=== PATIENT | male | born 1980 | race American Indian/Alaskan Native ===

== ENCOUNTER 2017-01-25 21:16 | Emergency (ER) | payer SELFPAY ==
[2017-01-25 21:50] VITALS: O2SAT 95
--- NOTE | 2017-01-25 23:57 | C.PDOC ---
History Of Present Illness 36 year old patient, with a past medical history of hypertension, back problems , and asthma, presents to the ED complaining of lower back pain. Patient states he was leaning on a wall at work, his boss noticed, and sent him to the ED to be evaluated. The pain has also been radiating down the right lower extremity. Patient denies any work related injury, numbness, weakness, or urinary symptoms. Patient is able to ambulate. Time Seen by Provider: 01/25/17 23:03 Chief Complaint (Nursing): Back Pain History Per: Patient History/Exam Limitations: no limitations Onset/Duration Of Symptoms: Other (chronic) Current Symptoms Are (Timing): Still Present Quality Of Discomfort: "Pain" Severity: Mild Pain Scale Rating Of: 3 Previous Symptoms: Back Pain Associated Symptoms: None Exacerbating Factor(s): Nothing Recent travel outside of the [place]: No Past Medical History Reviewed: Historical Data, Nursing Documentation, Vital Signs Vital Signs: Last Vital Signs Temp 98.1 F 01/26/17 00:00 Pulse 94 H 01/26/17 00:00 Resp 18 01/26/17 00:00 BP 164/91 H 01/26/17 00:00 Pulse Ox 95 01/26/17 00:01 - Medical History PMH: Asthma, Back Problems, HTN Family History: States: Unknown Family Hx - Social History Hx Tobacco Use: No Hx Alcohol Use: No Hx Substance Use: No - Immunization History Hx Tetanus Toxoid Vaccination: No Hx Influenza Vaccination: No Hx Pneumococcal Vaccination: No Review Of Systems Except As Marked, All Systems Reviewed And Found Negative. Genitourinary: Negative for: Dysuria, Frequency, Incontinence Musculoskeletal: Positive for: Back Pain (lower), Leg Pain (radiating to the right leg) Neurological: Negative for: Weakness, Numbness Physical Exam - Physical Exam Appears: Non-toxic, No Acute Distress Skin: Warm, Dry Back: Normal Inspection, No CVA Tenderness, No Vertebral Tenderness, No Decreased ROM, No Paraspinal Tenderness, No Straight Leg Raising (negative) Extremity: Normal ROM, No Pedal Edema, No Calf Tenderness, Capillary Refill (<2 seconds), No Deformity, No Swelling Neurological/Psych: Oriented x3, Normal Motor, Normal Sensation Gait: Steady ED Course And Treatment O2 Sat by Pulse Oximetry: 95 (RA) Pulse Ox Interpretation: Normal Progress Note: Plan: -Motrin Disposition - Disposition Disposition: HOME/ ROUTINE Disposition Time: 23:55 Condition: STABLE Additional Instructions: Please follow up with PMD or in clinic Take meds as directed Return to ER if worse Prescriptions: Naproxen [Naprosyn] 1 tab PO BID PRN #25 tab PRN Reason: Pain Instructions: Back Pain (ED) Forms: Work Excuse - Clinical Impression Clinical Impression: Low back pain - 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 - Scribe Statement The provider has reviewed the documentation as recorded by the Scribe Tiffanie Childress All medical record entries made by the Scribe were at my direction and personally dictated by me. I have reviewed the chart and agree that the record accurately reflects my personal performance of the history, physical exam, medical decision making, and the department course for this patient. I have also personally directed, reviewed, and agree with the discharge instructions and disposition.
--- NOTE | 2017-01-25 23:58 | C.PDOC ---
Time Seen by Provider: 01/25/17 23:03 Chief Complaint (Nursing): Back Pain Past Medical History Vital Signs: Last Vital Signs Temp 98.2 F 01/25/17 21:47 Pulse 100 H 01/25/17 21:47 Resp 20 01/25/17 21:47 BP 156/120 H 01/25/17 21:47 Pulse Ox 95 01/25/17 21:47 - Medical History PMH: Asthma, Back Problems, HTN Family History: States: Unknown Family Hx - Social History Hx Tobacco Use: No Hx Alcohol Use: No Hx Substance Use: No - Immunization History Hx Tetanus Toxoid Vaccination: No Hx Influenza Vaccination: No Hx Pneumococcal Vaccination: No ED Course And Treatment O2 Sat by Pulse Oximetry: 95 Disposition Counseled Patient/Family Regarding: Diagnosis, Need For Followup, Rx Given - Disposition Disposition: HOME/ ROUTINE Disposition Time: 23:56 Condition: STABLE Additional Instructions: Please follow up with PMD or in clinic Take meds as directed Return to ER if worse Prescriptions: Naproxen [Naprosyn] 1 tab PO BID PRN #25 tab PRN Reason: Pain Instructions: Back Pain (ED) - Clinical Impression Clinical Impression: Low back pain
[2017-01-26] VITALS: BP 164/91; PULSE 94; RESP 18; TEMP 98.1
== END 2017-01-26 00:07 | disposition home or self-care (01) ==
LOC: C.ER 21:16
DX: M54.5 Low back pain (principal)

== ENCOUNTER 2017-02-19 12:47 | Emergency (ER) | payer OTHER ==
[2017-02-19 13:01] VITALS: RESP 18; TEMP 99.1; O2SAT 94
[2017-02-19 13:18] VITALS: BP 162/120; PULSE 97
--- NOTE | 2017-02-19 13:30 | C.PDOC ---
History Of Present Illness 36 y/o male presents to ED requesting medication refill. Pt states he regularly takes labetalol 100mg BID at 7 AM and 11 PM. at bedside reports history of (+) obstructive sleep apnea. Notes she video tapes pt while sleeping, with profound snoring. Denies fever, chills, headache, visual changes, chest pain, palpitations, SOB, nausea, vomiting, or other associated symptoms. Time Seen by Provider: 02/19/17 13:12 Chief Complaint (Nursing): Med Refill History Per: Patient History/Exam Limitations: no limitations Onset/Duration Of Symptoms: Days Recent travel outside of the [place]: No Past Medical History Reviewed: Historical Data, Nursing Documentation, Vital Signs Vital Signs: Last Vital Signs Temp 99.1 F 02/19/17 12:54 Pulse 97 H 02/19/17 13:10 Resp 18 02/19/17 12:54 BP 162/120 H 02/19/17 13:10 Pulse Ox 94 L 02/20/17 00:05 - Medical History PMH: Asthma, Back Problems, HTN Family History: States: Unknown Family Hx - Social History Hx Tobacco Use: No Hx Alcohol Use: No Hx Substance Use: No - Immunization History Hx Tetanus Toxoid Vaccination: No Hx Influenza Vaccination: No Hx Pneumococcal Vaccination: No Review Of Systems Except As Marked, All Systems Reviewed And Found Negative. Constitutional: Negative for: Fever, Chills, Malaise Eyes: Negative for: Vision Change Cardiovascular: Negative for: Chest Pain, Palpitations Respiratory: Negative for: Cough, Wheezing Gastrointestinal: Negative for: Nausea, Vomiting, Abdominal Pain Skin: Negative for: Rash Neurological: Negative for: Weakness, Numbness, Headache, Dizziness Physical Exam - Physical Exam Appears: Non-toxic, No Acute Distress, Other (morbidly obese) Skin: Warm, Dry Head: Atraumatic, Normacephalic Throat: Other (small oropharynx ) Neck: Supple Chest: Symmetrical Cardiovascular: Rhythm Regular, No Murmur Respiratory: Normal Breath Sounds, No Rales, No Rhonchi, No Wheezing Gastrointestinal/Abdominal: Soft, No Tenderness, No Guarding, No Rebound Back: Normal Inspection Extremity: Normal ROM, Capillary Refill Neurological/Psych: Oriented x3, Normal Speech, Normal Cognition ED Course And Treatment O2 Sat by Pulse Oximetry: 94 (RA) Pulse Ox Interpretation: Normal Medical Decision Making Medical Decision Making: poorly controlled HTN, last dose of Labetolol 100 mg yesterday Should be on BOBBI and BB considering likely LVH and CLARENCE Refer for sleep Study Disposition Doctor Will See Patient In The: Office Counseled Patient/Family Regarding: Studies Performed, Diagnosis - Disposition Referrals: [facility] [Outside] [facility] [Outside] Tyler Smith MD [Staff Provider] - Disposition: HOME/ ROUTINE Disposition Time: 13:35 Condition: GOOD Additional Instructions: Hypertension: Take the Labetolol 200 mg twice a day: 8AM and 4PM. do NOT take before bedtime. Consider pt with HTN, CLARENCE, LVH should have ACEI and BB meds. CLARENCE: Follow-up with Dr. Smith ([employer]) to have a Sleep Study performed and to be fitted for a sleep mask General: Loose body fat Moderate cardio, less heavy lifting. Prescriptions: Labetalol [Trandate] 200 mg PO BID #60 tab Instructions: Sleep Apnea Syndrome (ED), Hypertension (ED) - Clinical Impression Clinical Impression: Hypertension, CLARENCE (obstructive sleep apnea) - Scribe Statement The provider has reviewed the documentation as recorded by the Bridgettibmich Hernandez Provider Scribe Attestation: All medical record entries made by the Scribe were at my direction and personally dictated by me. I have reviewed the chart and agree that the record accurately reflects my personal performance of the history, physical exam, medical decision making, and the department course for this patient. I have also personally directed, reviewed, and agree with the discharge instructions and disposition.
== END 2017-02-19 13:46 | disposition home or self-care (01) ==
LOC: C.ER 12:47
DX: I10 Essential (primary) hypertension (principal); G47.33 Obstructive sleep apnea (adult) (pediatric)

== ENCOUNTER 2017-09-19 06:34 | Emergency (ER) | payer OTHER ==
[2017-09-19] MEDS ORDERED: Dexamethasone 4 mg/1 ml IM STA (08:14)
--- NOTE | 2017-09-19 08:18 | C.PDOC ---
History Of Present Illness 37-year-old male, presents to the emergency department with complaints of back pain. Patient states he works thirteen hour shifts, that he spends lifting things and walking a lot. States he has been experiencing worsening of chronic lower back pain over the past two weeks. Denies nausea/vomiting, numbness/ weakness, bladder or bowel incontinence, tingling sensation, or any other associated symptoms. No other complaints at this time. Time Seen by Provider: 09/19/17 07:31 Chief Complaint (Nursing): Back Pain History Per: Patient History/Exam Limitations: no limitations Onset/Duration Of Symptoms: Days Current Symptoms Are (Timing): Still Present Severity: Moderate Past Medical History Reviewed: Historical Data, Nursing Documentation, Vital Signs Vital Signs: Last Vital Signs Temp 98 F 09/19/17 06:53 Pulse 93 H 09/19/17 06:53 Resp 20 09/19/17 06:53 BP 140/90 09/19/17 06:53 Pulse Ox 97 09/19/17 08:24 - Medical History PMH: Asthma, Back Problems, HTN Family History: States: No Known Family Hx - Social History Hx Tobacco Use: No Hx Alcohol Use: No Hx Substance Use: No - Immunization History Hx Tetanus Toxoid Vaccination: No Hx Influenza Vaccination: No Hx Pneumococcal Vaccination: No Review Of Systems Except As Marked, All Systems Reviewed And Found Negative. Constitutional: Negative for: Fever Cardiovascular: Negative for: Chest Pain Respiratory: Negative for: Shortness of Breath Gastrointestinal: Negative for: Vomiting Genitourinary: Negative for: Incontinence Musculoskeletal: Positive for: Back Pain Neurological: Negative for: Weakness, Numbness Physical Exam - Physical Exam Appears: Non-toxic, No Acute Distress Skin: Warm, Dry, No Rash Head: Atraumatic, Normacephalic Eye(s): bilateral: Normal Inspection, PERRL, EOMI Nose: Normal Oral Mucosa: Moist Lips: Normal Appearing Neck: Normal ROM, No Midline Cervical Tenderness, No Paracervical Tenderness, Supple Chest: Symmetrical Cardiovascular: Rhythm Regular, No Murmur Respiratory: Normal Breath Sounds, No Accessory Muscle Use Gastrointestinal/Abdominal: Bowel Sounds (active), Soft, No Tenderness Back: No CVA Tenderness, Paraspinal Tenderness (Lumbar), No Straight Leg Raising Extremity: Normal ROM, No Tenderness, No Swelling Pulses: Left Dorsalis Pedis: Normal, Right Dorsalis Pedis: Normal Neurological/Psych: Oriented x3, Normal Speech, Normal Motor, Normal Sensation Gait: Steady ED Course And Treatment O2 Sat by Pulse Oximetry: 97 (on RA) Pulse Ox Interpretation: Normal Medical Decision Making Medical Decision Making: Plan: * Decadron, Lidoderm, Toradol * Reassess and Disposition On re-exam, the patient reports improvement of symptoms. Lungs are CTA, heart is RRR, Abdomen is soft, non-tender and tolerating PO well. Ambulatory in the ED. Follow up with the medical doctor within 1-2 days. Return if worsened. Disposition - Disposition Referrals: [facility] [Outside] Disposition: HOME/ ROUTINE Disposition Time: 09:07 Condition: GOOD Additional Instructions: Follow up with the medical doctor within 1-2 days. Return if worsened. Prescriptions: Cyclobenzaprine [Cyclobenzaprine HCl] 10 mg PO BID #14 tab Naproxen [Naprosyn] 500 mg PO BID #20 tab Instructions: Acute Low Back Pain (DC) Forms: [facility] (Swazi), Work Excuse - Clinical Impression Clinical Impression: Low back pain - Scribe Statement The provider has reviewed the documentation as recorded by the Scribe (Luis Redman) All medical record entries made by the Scribe were at my direction and personally dictated by me. I have reviewed the chart and agree that the record accurately reflects my personal performance of the history, physical exam, medical decision making, and the department course for this patient. I have also personally directed, reviewed, and agree with the discharge instructions and disposition.
[2017-09-19] MEDS ORDERED: Lidocaine 5% Patch TD ONE (08:24)
[2017-09-19 09:19] VITALS: BP 132/78; PULSE 86; RESP 18; TEMP 98.4
[2017-09-19] MEDS ORDERED: Lidocaine 5% Patch TD SCH (10:00)
[2017-09-21 12:40] VITALS: O2SAT 97
== END 2017-09-19 09:20 | disposition home or self-care (01) ==
LOC: C.ER 06:34
DX: M54.5 Low back pain (principal)
CPT/HCPCS: 96372; 99283; J1100; J1885

== ENCOUNTER 2018-03-09 05:28 | Emergency (ER) | payer SELFPAY ==
[2018-03-09 06:19] VITALS: RESP 20; TEMP 98.2
--- NOTE | 2018-03-09 06:23 | C.PDOC ---
History Of Present Illness 37 year old male presents to the ED c/o left elbow pain that stared yesterday. Patient states he does heavy lifting at work, denies c/o pain to his left shoulder or chest. Patient has not taken any pain medications at home for his symptoms. Patient denies trauma, injury, fall, weakness, numbness. Time Seen by Provider: 03/09/18 06:10 Chief Complaint (Nursing): Upper Extremity Problem/Injury History Per: Patient History/Exam Limitations: no limitations Onset/Duration Of Symptoms: Days Current Symptoms Are (Timing): Still Present Quality: "Pain" Exacerbating Factor(s): Movement Recent travel outside of the [place]: No Additional History Per: Patient Past Medical History Reviewed: Historical Data, Nursing Documentation, Vital Signs Vital Signs: Last Vital Signs Temp 98.2 F 03/09/18 06:14 Pulse 100 H 03/09/18 06:14 Resp 20 03/09/18 06:14 BP 186/114 H 03/09/18 06:14 Pulse Ox 95 03/09/18 06:48 - Medical History PMH: Asthma, Back Problems, HTN Surgical History: No Surg Hx Family History: States: Unknown Family Hx - Social History Hx Tobacco Use: No Hx Alcohol Use: No Hx Substance Use: No - Immunization History Hx Tetanus Toxoid Vaccination: No Hx Influenza Vaccination: No Hx Pneumococcal Vaccination: No Review Of Systems Constitutional: Negative for: Fever, Chills Cardiovascular: Negative for: Chest Pain Respiratory: Negative for: Shortness of Breath Gastrointestinal: Negative for: Abdominal Pain Musculoskeletal: Positive for: Arm Pain Skin: Negative for: Rash Physical Exam - Physical Exam Appears: Non-toxic, No Acute Distress Skin: Normal Color, Warm, Dry Head: Atraumatic, Normacephalic Eye(s): bilateral: Normal Inspection Nose: No Discharge Oral Mucosa: Moist Neck: Normal ROM, Supple Chest: Symmetrical Cardiovascular: Rhythm Regular, No Murmur Respiratory: Normal Breath Sounds, No Rales, No Rhonchi, No Wheezing Gastrointestinal/Abdominal: Soft, No Tenderness, No Guarding, No Rebound Extremity: No Normal ROM (limited left elbow due to pain), Tenderness (left elbow), Capillary Refill (< 2 seconds), No Swelling, Other (no effusion, no warmth,) Pulses: Left Dorsalis Pedis: Normal, Right Dorsalis Pedis: Normal Neurological/Psych: Oriented x3, Normal Speech, Normal Motor, Normal Sensation Gait: Steady ED Course And Treatment ECG: Interpreted By Me, Viewed By Me ECG Rhythm: Sinus Rhythm Interpretation Of ECG: LVH no ST/T wave changes Rate From EC (BPM) O2 Sat by Pulse Oximetry: 95 (ON RA) Pulse Ox Interpretation: Normal - Other Rad left elbow X-Ray: Interpreted by Me, Viewed By Me Progress Note: Plan: - Toradol 30 mg IM. - Left elbow X-Ray. On reassessment , patient is resting comfortably, and is in no acute distress. Patient was instructed to follow up with physician/clinic in 1-2 days for further evaluation. 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 - Scribe Statement The provider has reviewed the documentation as recorded by the Scribe Jarrett Wells All medical record entries made by the Scribe were at my direction and personally dictated by me. I have reviewed the chart and agree that the record accurately reflects my personal performance of the history, physical exam, medical decision making, and the department course for this patient. I have also personally directed, reviewed, and agree with the discharge instructions and disposition. Physician Patient Turnover Patient Signed Over To: Barbara Castaneda Handoff Comments: Pending Lt elbow XR
--- NOTE | 2018-03-09 06:28 | C.PDOC ---
Time Seen by Provider: 03/09/18 06:10 Chief Complaint (Nursing): Upper Extremity Problem/Injury Past Medical History - Medical History PMH: Asthma, Back Problems, HTN - Social History Hx Tobacco Use: No Hx Alcohol Use: No Hx Substance Use: No - Immunization History Hx Tetanus Toxoid Vaccination: No Hx Influenza Vaccination: No Hx Pneumococcal Vaccination: No Disposition - Disposition
[2018-03-09 07:05] VITALS: BP 154/100; PULSE 90; O2SAT 97
--- NOTE | 2018-03-09 08:53 | RAD ---
PROCEDURE: Radiographs of the left elbow. HISTORY: pain COMPARISON: No prior. FINDINGS: BONES: No acute fracture. JOINTS: Unremarkable. SOFT TISSUES: Normal. JOINT EFFUSION: None. OTHER FINDINGS: Small triceps tendon enthesophyte IMPRESSION: No demonstrated fracture or dislocation.
--- NOTE | 2018-03-11 13:25 | CARD ---
APPROVED REPORT EKG Measurement Heart [id number] <Conclusion> Normal sinus rhythm LVH with repolarization abnormality Prolonged QT Abnormal ECG
== END 2018-03-09 07:38 | disposition home or self-care (01) ==
LOC: C.ER 05:28
DX: M25.522 Pain in left elbow (principal)
CPT/HCPCS: 73080; 96372; 99284; J1885

== ENCOUNTER 2018-10-01 01:05 | Emergency (ER) | payer OTHER ==
[2018-10-01 01:20] VITALS: O2SAT 95
--- NOTE | 2018-10-01 02:31 | C.PDOC ---
History Of Present Illness 38 year old male presents to the ER with a complaint of right lower back pain after lifting a heavy box at work [employer]END[employer]. Patient states he felt a pulling sensation to his lower back, notes the pain worsens with movement. Denies dysuria, hematuria, incontinence, weakness, or numbness. Time Seen by Provider: 10/01/18 01:20 Chief Complaint (Nursing): Back Pain History Per: Patient History/Exam Limitations: no limitations Onset/Duration Of Symptoms: Hrs Current Symptoms Are (Timing): Still Present Previous Symptoms: None Associated Symptoms: None Recent travel outside of the [place]: No Past Medical History Reviewed: Historical Data, Nursing Documentation, Vital Signs Vital Signs: Last Vital Signs Temp 98.1 F 10/01/18 01:15 Pulse 93 H 10/01/18 01:15 Resp 14 10/01/18 01:15 BP 183/134 H 10/01/18 01:15 Pulse Ox 95 10/01/18 01:15 - Medical History PMH: Asthma, Back Problems, HTN Family History: States: Unknown Family Hx - Social History Hx Tobacco Use: No Hx Alcohol Use: No Hx Substance Use: No - Immunization History Hx Tetanus Toxoid Vaccination: No Hx Influenza Vaccination: No Hx Pneumococcal Vaccination: No Review Of Systems Genitourinary: Negative for: Dysuria, Incontinence, Hematuria Musculoskeletal: Positive for: Back Pain (Right lower) Neurological: Negative for: Weakness, Numbness Physical Exam - Physical Exam Appears: Non-toxic Skin: Normal Color, Warm, Dry Head: Atraumatic, Normacephalic Eye(s): bilateral: Normal Inspection Gastrointestinal/Abdominal: Normal Exam, Other (obese) Back: No CVA Tenderness, No Vertebral Tenderness, Paraspinal Tenderness (Right lumbar), Straight Leg Raising (Negative) Extremity: Normal ROM (x4) Neurological/Psych: Oriented x3, Normal Speech Gait: Steady ED Course And Treatment O2 Sat by Pulse Oximetry: 95 (Room air) Pulse Ox Interpretation: Normal Progress Note: Valium and toradol administered. Patient is resting comfortably in the ER in no acute distress, ambulatory with steady gait, vitals are stable, will discharge home with Rx instructions to follow up with PMD. 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 - Scribe Statement The provider has reviewed the documentation as recorded by the Scribmich Bennett All medical record entries made by the Shauna were at my direction and personally dictated by me. I have reviewed the chart and agree that the record accurately reflects my personal performance of the history, physical exam, medical decision making, and the department course for this patient. I have also personally directed, reviewed, and agree with the discharge instructions and disposition.
[2018-10-01 02:33] VITALS: BP 180/120; PULSE 86; RESP 20; TEMP 97.8
== END 2018-10-01 02:59 | disposition home or self-care (01) ==
LOC: C.ER 01:05
DX: S39.012A Strain of muscle, fascia and tendon of lower back, initial encounter (principal); X50.0XXA Overexertion from strenuous movement or load, initial encounter; Y99.0 Civilian activity done for income or pay; I10 Essential (primary) hypertension
CPT/HCPCS: 96372; 99283; J1885

== ENCOUNTER 2018-10-15 13:02 | Emergency (ER) | payer SELFPAY ==
[2018-10-15 13:16] VITALS: RESP 18; TEMP 98.2
[2018-10-15] MEDS ORDERED: Lidocaine 5% Patch TD STA (14:13)
[2018-10-15] MEDS ORDERED: Lidocaine 5% Patch TD ONE (14:21)
--- NOTE | 2018-10-15 15:03 | C.PDOC ---
Time Seen by Provider: 10/15/18 13:57 Chief Complaint (Nursing): Back Pain Past Medical History Vital Signs: Last Vital Signs Temp 98.2 F 10/15/18 13:15 Pulse 88 10/15/18 13:15 Resp 18 10/15/18 13:15 BP 161/97 H 10/15/18 13:15 Pulse Ox 95 10/15/18 13:15 - Medical History PMH: Asthma, Back Problems, HTN Family History: States: Unknown Family Hx - Social History Hx Tobacco Use: No Hx Alcohol Use: No Hx Substance Use: No - Immunization History Hx Tetanus Toxoid Vaccination: No Hx Influenza Vaccination: No Hx Pneumococcal Vaccination: No ED Course And Treatment O2 Sat by Pulse Oximetry: 95 Disposition Counseled Patient/Family Regarding: Diagnosis, Need For Followup, Rx Given - Disposition Referrals: [facility] [Outside] Disposition: HOME/ ROUTINE Disposition Time: 15:01 Condition: STABLE Additional Instructions: follow up with medical clinic within 2 days call to make an appointment take medications as prescribed return to ER if symptoms worsens or progress Prescriptions: Acetaminophen/Codeine [Tylenol/Codeine 300 MG/30 MG] 1 tab PO Q6H PRN #8 tab PRN Reason: Pain, Severe (8-10) Cyclobenzaprine [Cyclobenzaprine HCl] 10 mg PO TID PRN #12 tab PRN Reason: Muscle Spasm Lidocaine 5% [Lidoderm] 1 ea TD DAILY PRN #10 patch PRN Reason: Pain, Moderate (4-7) predniSONE [predniSONE Tab] 50 mg PO DAILY #3 tab Instructions: Low Back Pain in Adults Forms: [facility] (Icelandic), General Discharge Instructions, Work Excuse - Clinical Impression Clinical Impression: Low back pain
[2018-10-15 15:24] VITALS: BP 167/94; PULSE 80; O2SAT 97
== END 2018-10-15 15:23 | disposition home or self-care (01) ==
LOC: C.ER 13:02
DX: M54.5 Low back pain (principal); I10 Essential (primary) hypertension
CPT/HCPCS: 96372; 99283; J1885

== ENCOUNTER 2018-11-19 20:32 | Emergency (ER) | payer SELFPAY ==
[2018-11-19 20:45] VITALS: RESP 20
[2018-11-19] MEDS ORDERED: Oxycodone/Acetaminophen 5/325 mg Tab PO STA (21:57)
[2018-11-19] MEDS ORDERED: Oxycodone/Acetaminophen 5/325 mg Tab ONE (22:11)
--- NOTE | 2018-11-19 22:28 | C.PDOC ---
History Of Present Illness 38 year old male with right 3rd tooth extraction 3 weeks ago presents still with on going pain. Denies new injury, fever, or chills. Time Seen by Provider: 11/19/18 21:45 Chief Complaint (Nursing): Dental Pain History Per: Patient History/Exam Limitations: no limitations Onset/Duration Of Symptoms: Days Current Symptoms Are (Timing): Still Present Recent travel outside of the [place]: No Past Medical History Reviewed: Historical Data, Nursing Documentation, Vital Signs Vital Signs: Last Vital Signs Temp 97.6 F 11/19/18 20:37 Pulse 98 H 11/19/18 20:37 Resp 20 11/19/18 20:37 BP 170/127 H 11/19/18 20:37 Pulse Ox 95 11/19/18 20:37 - Medical History PMH: Asthma, Back Problems, HTN, Sleep Apnea Family History: States: Unknown Family Hx - Social History Hx Tobacco Use: No Hx Alcohol Use: No Hx Substance Use: No - Immunization History Hx Tetanus Toxoid Vaccination: No Hx Influenza Vaccination: No Hx Pneumococcal Vaccination: No Review Of Systems Except As Marked, All Systems Reviewed And Found Negative. ENT: Positive for: Other (Tooth pain) Physical Exam - Physical Exam Appears: Non-toxic Skin: Normal Color, Warm, Dry Head: Atraumatic, Normacephalic Eye(s): bilateral: Normal Inspection Oral Mucosa: Moist Gingiva: Other (Mild gingival irritation, no dry socket or discharge to right 3rd tooth space) Neck: Normal, Supple Chest: Symmetrical, No Tenderness Cardiovascular: Rhythm Regular Respiratory: Normal Breath Sounds, No Rales, No Rhonchi, No Wheezing Gastrointestinal/Abdominal: Soft, No Tenderness Neurological/Psych: Oriented x3, Normal Speech ED Course And Treatment O2 Sat by Pulse Oximetry: 95 (Room air) Pulse Ox Interpretation: Normal Medical Decision Making Medical Decision Making: Impression: Tooth extraction Disposition - Disposition Referrals: [facility] [Outside] Disposition: HOME/ ROUTINE Disposition Time: 22:28 Condition: STABLE Additional Instructions: follow up with your dentist within 2 days call to make an appointment take medication as prescribed return to ER if symptoms worsens or progress Prescriptions: Mag&Al/Simet/Diphen/Lido [First Magic Mouthwash] 5 ml MM TID PRN #1 kit PRN Reason: Pain, Moderate (4-7) oxyCODONE/Acetaminophen [Percocet 5/325 mg Tab] 1 ea PO TID PRN #4 tab PRN Reason: Pain, Moderate (4-7) Instructions: Dental Pain (DC) Forms: General Discharge Instructions, [facility] (Palestinian) - Clinical Impression Clinical Impression: Toothache
--- NOTE | 2018-11-19 22:30 | C.PDOC ---
Time Seen by Provider: 11/19/18 21:45 Chief Complaint (Nursing): Dental Pain Past Medical History Vital Signs: Last Vital Signs Temp 97.6 F 11/19/18 20:37 Pulse 98 H 11/19/18 20:37 Resp 20 11/19/18 20:37 BP 170/127 H 11/19/18 20:37 Pulse Ox 95 11/19/18 20:37 - Medical History PMH: Asthma, Back Problems, HTN, Sleep Apnea Family History: States: Unknown Family Hx - Social History Hx Tobacco Use: No Hx Alcohol Use: No Hx Substance Use: No - Immunization History Hx Tetanus Toxoid Vaccination: No Hx Influenza Vaccination: No Hx Pneumococcal Vaccination: No ED Course And Treatment O2 Sat by Pulse Oximetry: 95 Disposition Counseled Patient/Family Regarding: Studies Performed, Diagnosis - Disposition Referrals: [facility] [Outside] Disposition: HOME/ ROUTINE Disposition Time: 22:28 Condition: STABLE Additional Instructions: follow up with your dentist within 2 days call to make an appointment take medication as prescribed return to ER if symptoms worsens or progress Prescriptions: oxyCODONE/Acetaminophen [Percocet 5/325 mg Tab] 1 ea PO TID PRN #4 tab PRN Reason: Pain, Moderate (4-7) Instructions: Dental Pain (DC) Forms: [facility] (Faroese), General Discharge Instructions - Clinical Impression Clinical Impression: Toothache
[2018-11-19] MEDS ORDERED: Amoxicillin-Clav 500-125 mg Tab PO ONE (22:41)
[2018-11-19 23:08] VITALS: BP 169/123; PULSE 87; TEMP 98; O2SAT 100
== END 2018-11-19 23:09 | disposition home or self-care (01) ==
LOC: C.ER 20:32
DX: K08.89 Other specified disorders of teeth and supporting structures (principal)
CPT/HCPCS: 96372; 99283; J1885